=== PATIENT | male | born 1955 | race African-American/Black ===

== ENCOUNTER 2023-03-22 10:17 | Observation (INO) | payer BC, OTHER ==
[2023-03-22] MEDS ORDERED: ASPIRIN 81 MG CHEWABLE TABLET ONE ×2 (10:35→10:36)
[2023-03-22] MEDS ORDERED: NA CHLORIDE 0.9% 1,000 ML ONE (10:35)
[2023-03-22 10:51] LABS: Absolute Lymphocytes (CBC) 0.6 K/uL (0.7-4.9); Hematocrit 37.6 % (39.6-49.0); Lymphocytes % 35.1 % (15.3-44.8); MCV 77.6 fL (80-100); MPV 8.2 fL (7.6-11.3); Platelets 135 thou/uL (152-406); RBC Red Blood Cell Count 4.85 M/uL (4.33-5.43)
[2023-03-22 10:57] LABS: Protime INR 1.15
[2023-03-22 10:58] LABS: Specific Gravity 1.024 (1.005-1.030); Urine Bacteria None Seen /HPF (<20); Urine Bilirubin NEGATIVE (Negative); Urine Blood Negative (Negative); Urine Clarity Clear (Clear); Urine Color Light-Yellow (Yellow); Urine Glucose NEGATIVE (Negative); Urine Mucus Slight /HPF (None Seen); Urine Protein 2+ (Negative); Urine RBC <5 /HPF (None Seen); Urine Urobilinogen 1+ (Normal)
[2023-03-22 11:11] LABS: Albumin 2.6 g/dL (3.4-5.0); Bilirubin Direct 0.2 mg/dL (0-0.2); Bilirubin Indirect, Calculated 0.4 mg/dL (0.2-0.8); Bilirubin Total 0.6 mg/dL (0.2-1.0); Magnesium 1.8 mg/dL (1.6-2.4); Potassium 3.6 mEq/L (3.5-5.1); Protein, Total 6.2 g/dL (6.4-8.2)
[2023-03-22 11:12] LABS: Troponin High Sensitivity 292.4 pg/mL (<58.9)
[2023-03-22] MEDS ORDERED: ENOXAPARIN 100 MG/ML SYR SQ ONE (11:31)
[2023-03-22] MEDS ORDERED: ONDANSETRON 4 MG/2 ML VIAL ONE (11:32)
[2023-03-22] MEDS ORDERED: FUROSEMIDE 40 MG/4 ML VIAL ONE (11:32)
[2023-03-22] MEDS ORDERED: MORPHINE 2 MG/ML SYR ONE (11:32)
[2023-03-22] MEDS ORDERED: FAMOTIDINE 20 MG/2 ML VIAL IV ONE (11:32)
[2023-03-22 11:34] LABS: Platelet Estimate ADEQ
[2023-03-22 11:36] LABS: Blood Morphology Comment NOT SEEN (NOT SEEN)
--- NOTE | 2023-03-22 11:36 | RAD REPORT ---
EXAM DESCRIPTION: Keshav Single View03/22/2023 10:53 am CLINICAL HISTORY: CHEST PAIN COMPARISON: No comparisons TECHNIQUE: Portable AP view of the chest. FINDINGS: Patchy right mid to lower lung airspace opacities. More subtle opacities in the left media l lung base. No pneumothorax or effusion. Moderate cardiomegaly. Apicalized appearance of the centra l vessels. Mediastinal contours are otherwise unremarkable. IMPRESSION: Patchy right mid to lower lung airspace opacities and more subtle opacities in the left lung base. Findings may relate to mild infectious or inflammatory pneumonitis versus chronic scarring . Moderate cardiomegaly with findings suggestive of central congestion.
--- NOTE | 2023-03-22 11:40 | EDPHYS ---
Physician Documentation [facility] Name: Norbert Louis Age: 67 yrs Sex: Male : 1955 Arrival Date: 03/22/2023 Time: 10:17 Bed 8 Private MD: ED Physician Isiah Regan HPI: 03/22 11:28 This 67 yrs old Black Male presents to ER via EMS with complaints of Chest Pain. margarita 11:28 The patient or guardian reports chest pain that is located primarily in the substernal margarita area, anterior chest wall, bilaterally. Onset: this morning. The pain does not radiate. Associated signs and symptoms: Pertinent positives: lightheadedness, shortness of breath. The chest pain is described as a pressure. Severity of pain: At its worst the pain was moderate in the emergency department the pain has resolved and did so just prior to arrival. Historical: - Allergies: 10:22 No Known Allergies; ph - PMHx: 10:22 Hypertensive disorder; Diabetes mellitus; ph - Immunization history:: Adult Immunizations unknown. - Social history:: Smoking status: Patient denies any tobacco usage or history of. - Family history:: not pertinent. ROS: 11:28 Constitutional: Negative for fever, chills, and weight loss, Eyes: Negative for injury, margarita pain, redness, and discharge, ENT: Negative for injury, pain, and discharge, Neck: Negative for injury, pain, and swelling, Respiratory: Negative for shortness of breath, cough, wheezing, and pleuritic chest pain, Abdomen/GI: Negative for abdominal pain, nausea, vomiting, diarrhea, and constipation, Back: Negative for injury and pain, : Negative for injury, bleeding, discharge, and swelling, MS/Extremity: Negative for injury and deformity, Skin: Negative for injury, rash, and discoloration, Neuro: Negative for headache, weakness, numbness, tingling, and seizure, Psych: Negative for depression, anxiety, suicide ideation, homicidal ideation, and hallucinations, Allergy/Immunology: Negative for hives, rash, and allergies, Endocrine: Negative for neck swelling, polydipsia, polyuria, polyphagia, and marked weight changes, Hematologic/Lymphatic: Negative for swollen nodes, abnormal bleeding, and unusual bruising, 11:28 Cardiovascular: Positive for chest pain, of the chest, Exam: 11:28 Constitutional: This is a well developed, well nourished patient who is awake, alert, margarita and in no acute distress. Head/Face: Normocephalic, atraumatic. Eyes: Pupils equal round and reactive to light, extra-ocular motions intact. Lids and lashes normal. Conjunctiva and sclera are non-icteric and not injected. Cornea within normal limits. Periorbital areas with no swelling, redness, or edema. ENT: Nares patent. No nasal discharge, no septal abnormalities noted. Tympanic membranes are normal and external auditory canals are clear. Oropharynx with no redness, swelling, or masses, exudates, or evidence of obstruction, uvula midline. Mucous membranes moist. Neck: Trachea midline, no thyromegaly or masses palpated, and no cervical lymphadenopathy. Supple, full range of motion without nuchal rigidity, or vertebral point tenderness. No Meningismus. Chest/axilla: Normal chest wall appearance and motion. Nontender with no deformity. No lesions are appreciated. Cardiovascular: Regular rate and rhythm with a normal S1 and S2. No gallops, murmurs, or rubs. Normal PMI, no JVD. No pulse deficits. Respiratory: Lungs have equal breath sounds bilaterally, clear to auscultation and percussion. No rales, rhonchi or wheezes noted. No increased work of breathing, no retractions or nasal flaring. Abdomen/GI: Soft, non-tender, with normal bowel sounds. No distension or tympany. No guarding or rebound. No evidence of tenderness throughout. Back: No spinal tenderness. No costovertebral tenderness. Full range of motion. Male : Normal genitalia with no discharge or lesions. Skin: Warm, dry with normal turgor. Normal color with no rashes, no lesions, and no evidence of cellulitis. MS/ Extremity: Pulses equal, no cyanosis. Neurovascular intact. Full, normal range of motion. Neuro: Awake and alert, GCS 15, oriented to person, place, time, and situation. Cranial nerves II-XII grossly intact. Motor strength 5/5 in all extremities. Sensory grossly intact. Cerebellar exam normal. Normal gait. Psych: Awake, alert, with orientation to person, place and time. Behavior, mood, and affect are within normal limits. 11:28 ECG was reviewed by the Attending Physician. Vital Signs: 10:20 BP 150 / 80; Pulse 58; Resp 18; Temp 97.8; Pulse Ox 97% on R/A; Weight 118.39 kg; ph Height 6 ft. 2 in. ; 10:34 BP 155 / 72; Pulse 63; Resp 18; Pulse Ox 99% on R/A; rs5 11:36 BP 150 / 71; Pulse 61; Resp 18; Pulse Ox 99% on R/A; ph 14:16 BP 162 / 73; Pulse 52; Resp 18; Temp 98.1; Pulse Ox 99% on R/A; ph 14:45 BP 160 / 71; Pulse 67; Resp 18; Pulse Ox 99% on R/A; rs5 10:20 Body Mass Index 33.51 (118.39 kg, 187.96 cm) ph MDM: 10:22 Patient medically screened. margarita 11:35 Differential diagnosis: abnormal EKG, acute myocardial infarction, acute pericarditis, margarita anxiety, gastritis, hiatal hernia, pancreatitis, peptic ulcer disease, pleurisy, pneumonia, pulmonary embolus, stable angina, unstable angina. HEART Score: History: Moderately Suspicious (1), ECG: Non specific repolarization disturbance / LBTB / PM (1), Age: > or = 65 years (2), Risk Factors: > or = 3 Risk factors for atherosclerotic disease (2), [Hypercholesterolemia] [Hypertension] [DM] [+ Family HX] [Obesity] Troponin: > or = 3 x Normal Limit (2). The patient was given aspirin in the Emergency Department. ARTURO Risk Score: 1 - patient's age is greater or equal to 65 years, 1 - Three or more CAD risk factors, 1- Known CAD, 1 - ASA use in past 7 days, 1 - Elevated Cardiac Markers, TOTAL SCORE = 5. Data reviewed: vital signs, nurses notes, lab test result(s), EKG, radiologic studies, plain films. Consideration of Admission/Observation Escalation of care including admission/observation considered. I considered the following discharge prescriptions or medication management in the emergency department Medications were administered in the Emergency Department. See MAR. Independent interpretation of the following test(s) in the Emergency Department EKG: See my EKG interpretation above. Test considered but Not performed: CT: no ct chest. Care significantly affected by the following chronic conditions: Diabetes, Hypertension, Obesity. Counseling: I had a detailed discussion with the patient and/or guardian regarding the historical points, exam findings, and any diagnostic results supporting the discharge/admit diagnosis, the presence of at least one elevated blood pressure reading (>120/80) during this emergency department visit, lab results, the need for further work-up and treatment in the hospital. 03/22 10:28 Order name: Basic Metabolic Panel; Complete Time: 11:26 [facility] 03/22 10:28 Order name: CBC with Diff [facility] 03/22 10:28 Order name: LFT's; Complete Time: 11:26 [facility] 03/22 10:28 Order name: Magnesium; Complete Time: 11:26 [facility] 03/22 10:28 Order name: NT PRO-BNP; Complete Time: 11:26 [facility] 03/22 10:28 Order name: PT-INR; Complete Time: 11:26 [facility] 03/22 10:28 Order name: Troponin HS; Complete Time: 11:26 [facility] 03/22 10:28 Order name: Lipase; Complete Time: 11:26 [facility] 03/22 10:28 Order name: Urinalysis w/ reflexes; Complete Time: 11:26 [facility] 03/22 11:35 Order name: Manual Differential [facility] 03/22 13:51 Order name: Blood Culture Adult (2) [facility] 03/22 14:23 Order name: Troponin High Sensitivity [facility] 03/22 14:23 Order name: Lipid Profile [facility] 03/22 10:28 Order name: XRAY Chest (1 view); Complete Time: 13:50 [facility] 03/22 10:28 Order name: EKG; Complete Time: 10:29 [facility] 03/22 10:28 Order name: Cardiac monitoring; Complete Time: 10:45 [facility] 03/22 10:28 Order name: EKG - Nurse/Tech; Complete Time: 10:32 [facility] 03/22 10:28 Order name: IV Saline Lock; Complete Time: 10:32 [facility] 03/22 10:28 Order name: Labs collected and sent; Complete Time: 10:45 [facility] 03/22 10:28 Order name: O2 Per Protocol; Complete Time: 10:45 [facility] 03/22 10:28 Order name: O2 Sat Monitoring; Complete Time: 10:45 [facility] EC:28 Rate is 58 beats/min. Rhythm is regular. QRS Elwin is Normal. MO interval is normal. QRS margarita interval is normal. QT interval is normal. No Q waves. T waves are Inverted in leads I, II, III, aVL, aVF, V4, V5, V6. No ST changes noted. Clinical impression: Abnormal EKG without significant change. Interpreted by me. Reviewed by me. Administered Medications: 11:28 Discontinued: ns 0.9% 1000 ml IV at 125 ml/hr continuous margarita 10:45 Drug: Aspirin PO Chewable Tablet 324 mg PO once; 81 mg tablets x 4 Route: PO; rs5 14:09 Follow up: Response: No adverse reaction rs5 10:45 Drug: NS 0.9% IV 1000 ml IV at 125 ml/hr continuous Route: IV; Rate: 125 ml/hr; Site: rs5 right antecubital; 14:16 Follow up: IV Status: Order to discontinue infusion ph 11:35 Drug: Furosemide IVP 40 mg IVP once; give over 2 minutes Route: IVP; Site: right rs5 antecubital; 12:00 Follow up: Response: No adverse reaction rs5 11:35 Drug: Enoxaparin Sub-Q 100 mg Sub-Q once Route: Sub-Q; Site: left lower abdomen; rs5 12:00 Follow up: Response: No adverse reaction rs5 11:35 Drug: Famotidine IVP 20 mg IVP once; dilute with 10 mL 0.9% NaCl; give over 2 minutes rs5 Route: IVP; Site: right antecubital; 12:00 Follow up: Response: No adverse reaction rs5 11:35 Drug: morphine IVP or IV 2 mg IVP once over 4 mins Route: IVP; Infused Over: 4 mins; rs5 Site: right antecubital; 12:01 Follow up: Response: No adverse reaction rs5 11:35 Drug: Ondansetron IVP 4 mg IVP once; over 2 minutes Route: IVP; Site: right antecubital;rs5 12:01 Follow up: Response: No adverse reaction rs5 14:15 Drug: LevOfloxacin PO 750 mg PO once Route: PO; ph 14:46 Follow up: Response: No adverse reaction rs5 Disposition Summary: 03/22/23 11:40 Hospitalization Ordered Notes: Hospitalization Status: Inpatient Admission margarita Provider: Kyle Caraballo cha Location: Telemetry/MedSurg (Inpatient) margarita Condition: Fair margarita Problem: new margarita Symptoms: have improved margarita Bed/Room Type: Standard margarita Room Assignment: 221(03/22/23 14:00) ja1 Diagnosis - Chest pain, unspecified margarita - Unstable angina margarita - Obesity, unspecified margarita - Type 2 diabetes mellitus with hyperglycemia margarita - Essential (primary) hypertension margarita - Non ST elevation NC margarita Forms: - Medication Reconciliation Form margarita - SBAR form margarita - Leadership Thank You Letter [facility] Signatures: Dispatcher [employer] EDMS Isiah Regan MD MD cha Hall, Patricia RN RN Connor Polanco RN RN ja1 Richie Lin RN RN rs5 Corrections: (The following items were deleted from the chart) 11:35 10:58 CBC Smear Scan ordered. EDMS EDMS 14:00 11:40 margarita ja1
--- NOTE | 2023-03-22 11:40 | ER ---
Nurse's Notes [facility] Name: Norbert Louis Age: 67 yrs Sex: Male : 1955 Arrival Date: 03/22/2023 Time: 10:17 Bed 8 Private MD: Diagnosis: Chest pain, unspecified;Unstable angina;Obesity, unspecified;Type 2 diabetes mellitus with hyperglycemia;Essential (primary) hypertension;Non ST elevation CT Presentation: 03/22 10:20 Chief complaint: EMS states: [facility] c/o intermittent chest asencio for 3-4 days, ph hx of cardiac issues, , VSS, given 324 ASA, nitro x 1, 20G to RAC. Coronavirus screen: Vaccine status: Patient reports receiving the 2nd dose of the covid vaccine. Ebola Screen: No symptoms or risks identified at this time. Initial Sepsis Screen: Does the patient meet any 2 criteria? No. Patient's initial sepsis screen is negative. Does the patient have a suspected source of infection? No. Patient's initial sepsis screen is negative. Risk Assessment: Do you want to hurt yourself or someone else? Patient reports no desire to harm self or others. Onset of symptoms was March 22, 2023. 10:20 Method Of Arrival: EMS: [facility] 10:20 Acuity: AVIS 2 ph Triage Assessment: 10:22 General: Appears in no apparent distress. Behavior is calm, cooperative. Pain: ph Complains of pain in xiphoid area and mid-sternal area. Neuro: Level of Consciousness is awake, alert, obeys commands, Oriented to person, place, time, situation, Reports dizziness. Cardiovascular: Reports chest pain, lightheadedness, Denies nausea, syncope, vomiting, Capillary refill < 3 seconds in bilateral fingers Patient's skin is warm and dry. Chest pain is located in epigastric area substernal area. Respiratory: Airway is patent Respiratory effort is even, unlabored, Respiratory pattern is regular, symmetrical. GI: Reports epigastric pain, Patient currently denies abdominal pain, nausea, vomiting. Derm: Skin is pink, warm \T\ dry. Musculoskeletal: Circulation, motion, and sensation intact. Range of motion: intact in all extremities. Historical: - Allergies: 10:22 No Known Allergies; ph - PMHx: 10:22 Hypertensive disorder; Diabetes mellitus; ph - Immunization history:: Adult Immunizations unknown. - Social history:: Smoking status: Patient denies any tobacco usage or history of. - Family history:: not pertinent. Screenin:[facility] ED Fall Risk Assessment (Adult) History of falling in the last 3 months, ph including since admission No falls in past 3 months (0 pts) Score/Fall Risk Level 0 - 2 = Low Risk Oriented to surroundings, Maintained a safe environment, Provided non-skid footwear, Hourly rounding (assess needs \T\ fall precautionary measures) done. Abuse screen: Denies threats or abuse. Denies injuries from another. Nutritional screening: No deficits noted. Tuberculosis screening: No symptoms or risk factors identified. Assessment: 10:20 General: Appears in no apparent distress. comfortable, Behavior is calm, cooperative. rs5 Pain: Complains of pain in chest Pain does not radiate. Pain currently is 3 out of 10 on a pain scale. Quality of pain is described as aching, Pain began 2-3 days ago. Neuro: Level of Consciousness is awake, alert, obeys commands, Oriented to person, place, time, situation. Cardiovascular: Heart tones S1 S2 present Rhythm is. Respiratory: Airway is patent Respiratory effort is even, unlabored, Respiratory pattern is regular, symmetrical, Breath sounds are clear bilaterally. GI: Abdomen is round non-distended, Bowel sounds present X 4 quads. Abd is soft and non tender X 4 quads. : No signs and/or symptoms were reported regarding the genitourinary system. EENT: No signs and/or symptoms were reported regarding the EENT system. Derm: Skin is intact, Skin is dry, Skin is normal, Skin temperature is warm. Musculoskeletal: Range of motion: intact in all extremities. 10:25 Reassessment: SEE TRIAGE ASSESSMENT. ph 11:24 Reassessment: Patient and/or family updated on plan of care and expected duration. Pain rs5 level reassessed. Patient is alert, oriented x 3, equal unlabored respirations, skin warm/dry/pink. Patient denies pain at this time. Patient states feeling better. 11:35 Reassessment: Patient appears in no apparent distress at this time. Patient and/or ph family updated on plan of care and expected duration. Pain level reassessed. Patient is alert, oriented x 3, equal unlabored respirations, skin warm/dry/pink. 12:40 Reassessment: Patient and/or family updated on plan of care and expected duration. Pain rs5 level reassessed. Patient is alert, oriented x 3, equal unlabored respirations, skin warm/dry/pink. Cardiovascular: Rhythm is regular. Respiratory: Respiratory effort is even, unlabored, Respiratory pattern is regular, symmetrical. 13:20 Reassessment: blanket provided per pt request, to bedside for blood draw. rs5 14:16 Reassessment: Patient appears in no apparent distress at this time. Patient and/or ph family updated on plan of care and expected duration. Pain level reassessed. Patient is alert, oriented x 3, equal unlabored respirations, skin warm/dry/pink. Vital Signs: 10:20 BP 150 / 80; Pulse 58; Resp 18; Temp 97.8; Pulse Ox 97% on R/A; Weight 118.39 kg; ph Height 6 ft. 2 in. ; 10:34 BP 155 / 72; Pulse 63; Resp 18; Pulse Ox 99% on R/A; rs5 11:36 BP 150 / 71; Pulse 61; Resp 18; Pulse Ox 99% on R/A; ph 14:16 BP 162 / 73; Pulse 52; Resp 18; Temp 98.1; Pulse Ox 99% on R/A; ph 14:45 BP 160 / 71; Pulse 67; Resp 18; Pulse Ox 99% on R/A; rs5 10:20 Body Mass Index 33.51 (118.39 kg, 187.96 cm) ph ED Course: 10:19 Patient arrived in ED. ph 10:22 Triage completed. ph 10:22 Isiah Regan MD is Attending Physician. margarita 10:25 Arm band placed on Patient placed in an exam room, on a stretcher, on bus monitor, ph on pulse oximetry. EKG completed in triage. Results shown to MD. 10:25 Maintain EMS IV. Dressing intact. Good blood return noted. Site clean \T\ dry. Gauge \T\ ph site: 20 RAC. Patient maintains SpO2 saturation greater than 95% on room air. 10:32 Richie Lin RN is Primary Nurse. rs5 10:54 XRAY Chest (1 view) In Process Unspecified. EDMS 11:36 Patient has correct armband on for positive identification. Placed in gown. Bed in low ph position. Call light in reach. Side rails up X 1. Client placed on continuous cardiac and pulse oximetry monitoring. NIBP monitoring applied. Door closed. Noise minimized. 11:39 Kyle Caraballo is Hospitalizing Provider. margarita 14:07 No provider procedures requiring assistance completed. rs5 14:16 Patient admitted, IV remains in place. ph Administered Medications: 11:28 Discontinued: ns 0.9% 1000 ml IV at 125 ml/hr continuous margarita 10:45 Drug: NS 0.9% IV 1000 ml IV at 125 ml/hr continuous Route: IV; Rate: 125 ml/hr; Site: rs5 right antecubital; 14:16 Follow up: IV Status: Order to discontinue infusion ph 10:45 Drug: Aspirin PO Chewable Tablet 324 mg PO once; 81 mg tablets x 4 Route: PO; rs5 14:09 Follow up: Response: No adverse reaction rs5 11:35 Drug: Furosemide IVP 40 mg IVP once; give over 2 minutes Route: IVP; Site: right rs5 antecubital; 12:00 Follow up: Response: No adverse reaction rs5 11:35 Drug: Enoxaparin Sub-Q 100 mg Sub-Q once Route: Sub-Q; Site: left lower abdomen; rs5 12:00 Follow up: Response: No adverse reaction rs5 11:35 Drug: Famotidine IVP 20 mg IVP once; dilute with 10 mL 0.9% NaCl; give over 2 minutes rs5 Route: IVP; Site: right antecubital; 12:00 Follow up: Response: No adverse reaction rs5 11:35 Drug: morphine IVP or IV 2 mg IVP once over 4 mins Route: IVP; Infused Over: 4 mins; rs5 Site: right antecubital; 12:01 Follow up: Response: No adverse reaction rs5 11:35 Drug: Ondansetron IVP 4 mg IVP once; over 2 minutes Route: IVP; Site: right antecubital;rs5 12:01 Follow up: Response: No adverse reaction rs5 14:15 Drug: LevOfloxacin PO 750 mg PO once Route: PO; ph 14:46 Follow up: Response: No adverse reaction rs5 Medication: 11:36 VIS not applicable for this client. ph Outcome: 11:40 Decision to Hospitalize by Provider. margarita 14:42 Admitted to ER Hold. Please see [facility] for further documentation. rs5 14:42 Condition: stable 14:42 Discharge instructions given to patient, Instructed on the need for admit, Demonstrated understanding of instructions, 15:31 Patient left the ED. rs5 Signatures: Dispatcher [employer] Isiah Yun MD MD cha Hall, Patricia, RN RN Richie Lin RN RN rs5
[2023-03-22] MEDS ORDERED: NITROGLYCERIN 0.4 MG/TAB SL PRN (12:33)
[2023-03-22] MEDS ORDERED: METOPROLOL TARTRATE 5 MG/5 ML INJ IV PRN (12:33)
[2023-03-22] MEDS ORDERED: levoFLOXacin 750 MG TAB ONE (14:09)
[2023-03-22 15:39] LABS: Potassium 3.6 mEq/L (3.5-5.1)
[2023-03-22 16:00] VITALS: BMI 33.5
[2023-03-22] MEDS ORDERED: GLUCAGON 1 MG/VIAL IM PRN (16:27)
[2023-03-22] MEDS ORDERED: D50W 25 GM/50 ML SYRINGE IV PRN (16:27)
[2023-03-22] MEDS: INSULIN REGULAR (HUMAN) 100 UNIT/ML SQ SCH (16:30)
[2023-03-22] MEDS ORDERED: D10W 125 ML IV PRN (16:34)
--- NOTE | 2023-03-22 17:32 | P.HP ---
Certification for Inpatient Patient admitted to: Observation With expected LOS: <2 Midnights Patient will require the following post-hospital care: None Practitioner: I am a practitioner with admitting privileges, knowledge of patient current condition, hospital course, and medical plan of care. Services: Services provided to patient in accordance with Admission requirements found in Title 42 Section 412.3 of the Code of Federal Regulations Patient History Date of Service: 03/22/23 Reason for admission: CHF exacerbation History of Present Illness: Norbert Louis is a 67-year-old male with past medical history of hypertensive disorder, CHF, and diabetes mellitus type 2 NIDDM who presented to the ED with complaints of chest pain. [facility] and dizziness that has occurred in the last couple days. He was not feeling better so he was brought to the ED today. Chest x-ray reports "patchy right and mild to lower lung air space opacity and more subtle opacity of the left lung base. Findings may relate to mild infection or inflammatory pneumonitis versus chronic scarring. Moderate cardiomegaly only with findings suggestive of central congestion." Troponin 292.4 with redraw of 333. Laboratory evaluation showing WBC 1.7, H&H 12/37, MCV 77.6, MCH 25.8, platelets 135, lipid panel unremarkable, BNP 463, albumin 2.6, GFR 69. Initial vitals BP 150 / 80; Pulse 58; Resp 18; Temp 97.8; Pulse Ox 97% on R/A. EKG Rate is 58 beats/min. Rhythm is regular. QRS [place] is Normal. [place] interval is normal. QRS interval is normal. QT interval is normal. No Q waves. T waves are Inverted in leads I, II, III, aVL, aVF, V4, V5, V6. No ST changes noted. Clinical impression: Abnormal EKG without significant change. Norbert will be admitted to hospitalist service for further evaluation and treatment CHF exacerbation. Allergies No Known Allergies Allergy (Unverified 03/22/23 12:53) Home Medications: Amlodipine [Norvasc] 10 mg PO DAILY 03/22/23 Atorvastatin Calcium [Lipitor] 80 mg PO BEDTIME 03/22/23 Finasteride [Proscar] 5 mg PO DAILY 03/22/23 Furosemide [Lasix] 20 mg PO DAILY 03/22/23 Insulin Glargine,Hum.rec.anlog [Lantus] 50 unit SQ DAILY 03/22/23 Potassium Chloride 10 meq PO DAILY 03/22/23 Tamsulosin [Flomax] 0.4 mg PO DAILY 03/22/23 - Past Medical/Surgical History Has patient received pneumonia vaccine in the past: Yes Diabetic: Yes -: CHF -: HTN -: HLD -: DM2 NIDDM -: [place] Past Surgical History: Reviewed- Non-Contributory - Family History Family History: Reviewed- Non-Contributory - Social History Smoking Status: Never smoker Alcohol use: No CD- Drugs: No Caffeine use: Yes Place of Residence: Home Review of Systems General: Weakness Cardiovascular: Chest Pain Neurological: Weakness, Other (Dizziness) Physical Examination - Physical Exam General: Alert, In no apparent distress, Oriented x3 HEENT: Atraumatic, Normocephalic, PERRLA Neck: Supple, 2+ carotid pulse no bruit, JVD not distended Respiratory: Clear to auscultation bilaterally, Normal air movement Cardiovascular: Normal pulses, Regular rate/rhythm, Normal S1 S2 Capillary refill: <2 Seconds Gastrointestinal: Normal bowel sounds, Soft and benign, Distended (obese) Musculoskeletal: No contractures, No erythema Integumentary: No breakdown, No significant lesion, No tenderness/swelling Neurological: Normal speech, Normal strength at 5/5 x4 extr, Normal tone - Studies Laboratory Data (last 24 hrs) 03/22/23 03/22/23 03/22/23 10:40 10:40 10:40 WBC 1.70 L Hgb 12.5 L Hct 37.6 L Plt Count 135 L PT 12.6 H INR 1.15 Sodium 142 Potassium 3.6 BUN 17 Creatinine 1.15 Glucose 102 Magnesium 1.8 Total Bilirubin 0.6 AST 13 L ALT 20 Alkaline Phosphatase 66 Lipase 20 Assessment and Plan - Plan Assessment and plan Acute CHF exacerbation Elevated troponin in patient with hx [place] BNP 463, Tropnin 292.4/ 333, serial pending Lipid panel unremarkable EKG abdnormal, no ST changes Dr Mann consulted Lasix IV BID Strict I and O Daily weight monitor potassium Procalcitonin pending Thrombocytopenia Leukopenia Platelet 135, WBC 1.7 Monitor in a.m. labs SCD for now History hypertension History hyperlipidemia Restart home medications when available DVT PPx SCD Full code LOS 2 to 3 days Discharge Plan: Home Plan to discharge in: 48 Hours - Advance Directives Does patient have a Living Will: No Does patient have a Durable POA for Healthcare: No Time Spent Managing Pts Care (In Minutes): 50
[2023-03-22 18:09] LABS: Absolute Lymphocytes (CBC) 0.8 K/uL (0.7-4.9); Lymphocytes % 42.6 % (15.3-44.8); MPV 9.2 fL (7.6-11.3); Platelets 124 thou/uL (152-406)
[2023-03-22 18:14] LABS: Hematocrit 40.7 % (39.6-49.0); MCV 77.5 fL (80-100); RBC Red Blood Cell Count 5.25 M/uL (4.33-5.43)
[2023-03-22] MEDS: AMLODIPINE 10 MG TAB PO SCH (19:56)
[2023-03-22] MEDS: ATORVASTATIN 80 MG TAB PO SCH (19:56)
[2023-03-22] MEDS: Levofloxacin 750mg IV 750 MG/150 ML BAG IV SCH (19:57)
[2023-03-22] MEDS: METOPROLOL TARTRATE 5 MG/5 ML INJ IV PRN (20:18)
--- NOTE | 2023-03-22 22:33 | CON ---
Date of Consultation: 03/22/2023 Reason For Consultation: Non-STEMI. History Of Present Illness: This 67-year-old male with history of hypertension, diabetes, presented with chest pain, retrosternal, in the lower chest area. No radiation. He felt like there was a bubb le that was about to burst and denies having any shortness of breath or diaphoresis. No nausea, vomi ting, or diarrhea. No known history of coronary artery disease and never had any cardiac interventio n. At the present time, he is asymptomatic, feels comfortable. His troponin was borderline elevated , hence I was consulted. Past Medical History: Diabetes and hypertension. Medication: Refer to consult sheet for detailed list. Allergies: NO KNOWN DRUG ALLERGIES. Family History: No premature coronary artery disease or cancer. Social History: Does not smoke or drink. Does not use any drugs. Physical Examination: Vital Signs: Reviewed. Head and Neck: Pupils are equal, reactive to light. Intact eye movements. No JVD. No cervical lym phadenopathy. Neck is supple. Thyroid is not enlarged. Lungs: Clear to auscultation bilaterally. No rhonchi, wheezing, or crackles. No accessory muscle u se. Heart: Regular rate and rhythm. No extra sounds. Abdomen: Soft and nontender. Bowel sounds positive. No organomegaly. No masses or hernia. No rig idity or rebound. Extremities: No edema, clubbing, or cyanosis. Intact pulses. Skin: No rashes noted on exam. Neurological: Alert, awake, oriented x3. No acute focal deficits appreciated. Lymph Nodes: No cervical or axillary lymphadenopathy. Investigations: Troponin 292 and then 333, BUN 16, creatinine 1.1. Hemoglobin is 12.5. Assessment/recommendation: 1.Xug-VN-iahhaavty myocardial infarction. Continue aspirin. Keep n.p.o. past midnight for coronary angiogram tomorrow and trend troponin. If substantial increase happened, then IV heparin drip will be recommended. Also recommend start on Lipitor 40 mg at bedtime. 2.Hypertension. Blood pressure is borderline elevated. Resume home medications and adjust as neede dCarly SR/MODL Voice ID: [id number] Report ID: [id number]
[2023-03-23] MEDS: ACETAMINOPHEN 325 MG TABLET PO PRN (04:29)
[2023-03-23 07:35] LABS: Magnesium 1.7 mg/dL (1.6-2.4); Phosphorus 3.1 mg/dL (2.5-4.9); Potassium 3.3 mEq/L (3.5-5.1)
--- NOTE | 2023-03-23 08:22 | P.PN ---
Date of Service: 03/23/23 Subjective Plan for heart cath today No new complaints ROS 10 point ROS as noted above, otherwise negative Physical Exam General: AAOx3, NAD HEENT: Atraumatic, Normocephalic, PERRLA Neck: Supple, 2+ carotid pulse no bruit, JVD not distended Respiratory: Clear to auscultation bilaterally, Normal air movement Cardiovascular: Normal pulses, RRR, Normal S1 S2, no murmur appreciated Capillary refill: <2 Seconds Gastrointestinal: positive bowel sounds, Soft and benign on palpation, NT/Distended (obese) Musculoskeletal: No contractures, No erythema Integumentary: No breakdown, No significant lesion, No tenderness/swelling Neurological: Normal speech, Normal strength at 5/5 x4 extr, Normal tone Vitals Reviewed Problem list Acute CHF exacerbation Elevated troponin in patient with hx [place] Thrombocytopenia Leukopenia History hypertension History hyperlipidemia Assessment and Plan Acute CHF exacerbation Elevated troponin in patient with hx [place] BNP 463, Tropnin 292.4/ 333/ 333 Lipid panel unremarkable EKG abdnormal, no ST changes Dr Mann consulted- [facility] today Lasix IV BID Strict I and O Daily weight monitor potassium Procalcitonin 0.05 Thrombocytopenia Leukopenia Platelet 124, WBC 3 Monitor in a.m. labs SCD for now History hypertension History hyperlipidemia Restart home medications when available DVT PPx SCD Full code LOS 2 to 3 days Discharge Plan: Home Plan to discharge in: 48 Hours
[2023-03-23] MEDS: TAMSULOSIN 0.4 MG SR CAP PO SCH (08:47)
[2023-03-23] MEDS: POTASSIUM CL SA 10 MEQ TAB PO SCH (08:48)
[2023-03-23] MEDS: ASPIRIN EC 81 MG TAB PO SCH (08:48)
[2023-03-23] MEDS: FINASTERIDE 5 MG TAB PO SCH (09:00)
[2023-03-23] MEDS ORDERED: LIDOCAINE 1% 20 ML MDV ONE (10:00)
[2023-03-23] MEDS ORDERED: HEPA 1000U/500MLS 2,000 UNIT/1,000 ML BAG IV ONE (10:00)
[2023-03-23] MEDS ORDERED: NITROGLYCERIN/D5W 25 MG/250 ML BTL IV ONE (11:04)
[2023-03-23] MEDS ORDERED: FENTANYL CITR 100 MCG/2 ML ONE (11:04)
[2023-03-23] MEDS ORDERED: VERAPAMIL HCL 10 MG/4 ML VIAL IV ONE (11:04)
[2023-03-23] MEDS ORDERED: TICAGRELOR 90 MG TABLET PO ONE (11:05)
[2023-03-23] MEDS ORDERED: HEPARIN 10,000 UNIT/10 ML VIAL IV ONE (11:05)
[2023-03-23] MEDS ORDERED: HEPARIN 5000 UNIT/ML 1 ML VIAL ONE (11:05)
[2023-03-23] MEDS ORDERED: MIDAZOLAM HCL 2 MG/2 ML INJ ONE (11:05)
[2023-03-23] MEDS ORDERED: ATROPINE SULF 1 MG/10 ML SYR IV ONE (11:05)
[2023-03-23] MEDS ORDERED: ASPIRIN 325 MG TAB ONE (11:06)
[2023-03-23] MEDS ORDERED: CLOPIDOGREL 75 MG TABLET ONE (11:06)
[2023-03-23] MEDS ORDERED: NA CHLORIDE 0.9% 500 ML ONE (11:18)
--- NOTE | 2023-03-23 16:44 | EKG ---
Test Date: 2023-03-22 Test Time: 10:17:41 Vp Of Product: DAIMOND MEASUREMENT RESULTS: Intervals: Rate: 58 MT: 204 QRSD: 108 QT: 422 QTc: 414 Garwood: P: 54 MT: 204 QRS: 57 T: 182 INTERPRETIVE STATEMENTS: Sinus bradycardia Incomplete left bundle branch block ST & T wave abnormality, consider inferolateral ischemia Abnormal ECG Compared to ECG 01/16/2004 04:22:00 Left bundle-branch block now present ST (T wave) deviation now present Sinus arrhythmia no longer present First degree AV block no longer present Intraventricular conduction delay no longer present T-wave abnormality no longer present Possible ischemia still present Electronically Signed On 03-23-23 16:44:[address] SUPERVISOR by Howard Ahumada
[2023-03-24 08:15] LABS: Magnesium 1.8 mg/dL (1.6-2.4); Phosphorus 2.6 mg/dL (2.5-4.9); Potassium 3.3 mEq/L (3.5-5.1)
[2023-03-24 09:38] VITALS: BP 160/71; TEMP 98.1; O2SAT 99
--- NOTE | 2023-03-24 13:52 | ECHO ---
HEIGHT: 6 ft 2 in WEIGHT: 261 lb 0 oz DATE OF STUDY: 03/24/[address]: rBittney Harrington NP 2-DIMENSIONAL: YES M.MODE: YES DOPPLER: YES COLOR FLOW: YES TDS: PORTABLE: YES DEFINITY: BUBBLE STUDY: DIAGNOSIS: CHEST PAIN CARDIAC HISTORY: CATHERIZATION: NO SURGERY: NO PROSTHETIC VALVE: NO PACEMAKER: NO MEASUREMENTS (cm) DIASTOLIC (NORMALS) SYSTOLIC (NORMALS) IVSd 1.6 (0.6-1.2) LA Diam 4.1 (1.9-4.0) LVEF 70% LVIDd 5.1 (3.5-5.7) LVIDs 3.0 (2.0-3.5) %FS 40% LVPWd 1.6 (0.6-1.2) Ao Diam 3.0 (2.0-3.7) 2 DIMENSIONAL ASSESSMENT: RIGHT ATRIUM: NORMAL LEFT ATRIUM: DILATED RIGHT VENTRICLE: NORMAL LEFT VENTRICLE: SEVERE LEFT VENTRICULAR HYPERTROPHY TRICUSPID VALVE: NORMAL MITRAL VALVE: MILD MITRAL REGURGITATION PULMONIC VALVE: NORMAL AORTIC VALVE: NORMAL PERICARDIAL EFFUSION: NONE AORTIC ROOT: NORMAL LEFT VENTRICULAR WALL MOTION: NORMAL DOPPLER/COLOR FLOW: SEE BELOW COMMENTS: 1. NORMAL LEFT VENTRICULAR EJECTION FRACTION GREATER THAN 60% 2. NORMAL WALL MOTION 3. GRADE I DIASTOLIC DYSFUNCTION 4. SEVERE CONCENTRIC LEFT VENTRICULAR HYPERTROPHY 5. LEFT ATRIAL ENLARGEMENT TECHNOLOGIST: ANOOP DUMONT
--- NOTE | 2023-03-24 19:56 | P.DS ---
Admission Date: 03/22/23 Discharge Date: 03/25/23 Disposition: ROUTINE DISCHARGE Discharge Condition: GOOD Reason for Admission: CHF exacerbation Brief History of Present Illness: Diagnosis Acute CHF exacerbation Elevated troponin in patient with hx [place] Thrombocytopenia Leukopenia History hypertension History hyperlipidemia HPI 03/22/23 Norbert Louis is a 67-year-old male with past medical history of hypertensive disorder, CHF, and diabetes mellitus type 2 NIDDM who presented to the ED with complaints of chest pain. [facility] and dizziness that has occurred in the last couple days. He was not feeling better so he was brought to the ED today. Chest x-ray reports "patchy right and mild to lower lung air space opacity and more subtle opacity of the left lung base. Findings may relate to mild infection or inflammatory pneumonitis versus chronic scarring. Moderate cardiomegaly only with findings suggestive of central congestion." Troponin 292.4 with redraw of 333. Laboratory evaluation showing WBC 1.7, H&H 12/37, MCV 77.6, MCH 25.8, platelets 135, lipid panel unremarkable, BNP 463, albumin 2.6, GFR 69. Initial vitals BP 150 / 80; Pulse 58; Resp 18; Temp 97.8; Pulse Ox 97% on R/A. EKG Rate is 58 beats/min. Rhythm is regular. QRS [place] is Normal. [place] interval is normal. QRS interval is normal. QT interval is normal. No Q waves. T waves are Inverted in leads I, II, III, aVL, aVF, V4, V5, V6. No ST changes noted. Clinical impression: Abnormal EKG without significant change. Norbert will be admitted to hospitalist service for further evaluation and treatment CHF exacerbation. Hospital Course: Norbert Louis is a pleasant 67 year old male with a past medical history significant for hypertensive disorder, CHF, and diabetes mellitus type 2 NIDDM who was admitted to the [facility] on 03/22/23 for CHF exacerbation. Norbert Louis presented to the ED with Chief complaint of chest pain, dizziness, and blurred vision. Dr. Mann was consulted and performed a LHC showing good heart function. Dr. Mann has recommended discharge at this time. The chest xray has shown a likely infection to the left lung and has been treated with IV antibiotics that will be prescribed to continue at home. Follow up with your PCP in 2-3 weeks for continued medication management for blood pressure and diabetes control. He is hemodynamically stable, Ambulating independently, on RA, alert and oriented, and ready for discharge. On 03/24/23, Norbert was seen on morning rounds and deemed medically stable for discharge. Norbert was discharged with instructions to schedule follow-up appointments with PCP and Dr. Mann. Levaquin was prescribed. The patient and family members were given the opportunity to ask questions and reported no further questions. Furthermore, all questions were answered to the best of my ability. A copy of this discharge summary will be sent to the above providers to facilitate continuity of care. Today, I personally spent 50 minutes with Norbert, of which greater than 50% of the time was spent in patient education, counseling, and coordination of care as described above. Physical Exam General: Alert and oriented x3, NAD, conversant and calm HEENT: Atraumatic, Normocephalic, PERRLA Neck: Supple, 2+ carotid pulse no bruit, JVD not distended Respiratory: Clear to auscultation bilaterally, symmetrical chest wall movement, on RA Cardiovascular: Normal pulses, RRR, Normal S1 S2, no murmur appreciated Capillary refill: <2 Seconds Gastrointestinal: Normoactive bowel sounds, Soft and benign on palpation, NT/ND (obese) Musculoskeletal: No contractures, No erythema Integumentary: No breakdown, No significant lesion, No tenderness/swelling Neurological: Normal speech, Normal strength at 5/5 x4 extr, Normal tone Vital Signs/Physical Exam: Temp Pulse Resp BP Pulse Ox 98.1 F 67 18 160/71 H 96 03/24/23 09:25 03/24/23 09:26 03/24/23 09:26 03/24/23 09:26 03/24/23 08:00 Laboratory Data at Discharge: WBC 3.90 thou/uL (4.3-10.9) L 03/22/23 16:05 Hgb 13.7 g/dL (13.6-17.9) D 03/22/23 16:05 Hct 40.7 % (39.6-49.0) 03/22/23 16:05 Plt Count 124 thou/uL (152-406) L 03/22/23 16:05 PT 12.6 SECONDS (9.5-12.5) H 03/22/23 10:40 INR 1.15 03/22/23 10:40 Sodium 139 mEq/L (136-145) 03/24/23 07:38 Potassium 3.3 mEq/L (3.5-5.1) L 03/24/23 07:38 BUN 12 mg/dL (7-18) 03/24/23 07:38 Creatinine 0.97 mg/dL (0.70-1.30) 03/24/23 07:38 Glucose 174 mg/dL (74-106) H 03/24/23 07:38 Phosphorus 2.6 mg/dL (2.5-4.9) 03/24/23 07:38 Magnesium 1.8 mg/dL (1.6-2.4) 03/24/23 07:38 Total Bilirubin 0.6 mg/dL (0.2-1.0) 03/22/23 10:40 AST 13 U/L (15-37) L 03/22/23 10:40 ALT 20 U/L (16-61) 03/22/23 10:40 Alkaline Phosphatase 66 U/L (45-117) 03/22/23 10:40 Triglycerides 64 mg/dL (<150) 03/22/23 13:38 Cholesterol 127 mg/dL (<200) 03/22/23 13:38 HDL Cholesterol 30 mg/dL (40-60) L 03/22/23 13:38 Cholesterol/HDL Ratio 4.23 03/22/23 13:38 Lipase 20 U/L (13-75) 03/22/23 10:40 Home Medications: Amlodipine [Norvasc*] 10 mg PO DAILY 03/22/23 Atorvastatin Calcium [Lipitor] 80 mg PO BEDTIME 03/22/23 Finasteride [Proscar*] 5 mg PO DAILY 03/22/23 Furosemide [Lasix*] 20 mg PO DAILY 03/22/23 Insulin Glargine,Hum.rec.anlog [Lantus] 50 unit SQ DAILY 03/22/23 Potassium Chloride 10 meq PO DAILY 03/22/23 Tamsulosin [Flomax*] 0.4 mg PO DAILY 03/22/23 levoFLOXacin [Levaquin] 750 mg PO DAILY 7 Days #7 tab 03/24/23 New Medications: levoFLOXacin [Levaquin] 750 mg PO DAILY 7 Days #7 tab Physician Discharge Instructions: Norbert Louis presented to the ED with Chief complaint of chest pain, dizziness, and blurred vision. Dr. Mann was consulted and performed a LHC showing good heart function. He has released you for discharge. The chest xray has shown a likely infection to the left lung and has been treated with IV antibiotics that will be prescribed to continue at home. Follow up with your PCP in 2-3 for continued medication management for blood pressure and diabetes control. 1. Follow up with PCP 2-3 days for continued medication management, blood pressure management, diabetes management 2. Follow up with Dr. Mann in 2 weeks for continued heart health 3. Continue taking atorvastatin 80 mg daily and aspirin 81 mg daily 4. continue with a heart healthy and diabetic friendly diet 5. Ambulate as tolerated 6. Return to the ED if symptoms worsen 7. no new medications this admission Diet: ADA Activity: Ad sharee Followup: Gopi Mann MD [ACTIVE - CAN ADMIT] - 1-2 Weeks [facility] [Primary [facility] Provider] - 1-2 Weeks Time spent managing pt's care (in minutes): 50
== END 2023-03-24 13:45 | disposition home or self-care (01) ==
LOC: ER 10:17 → ERHOLD 12:32 → 2ND 14:17
PROVIDERS: ADMIT Internal Medicine; ATTEND Internal Medicine
DX: I21.4 Non-ST elevation (NSTEMI) myocardial infarction (principal); D69.6 Thrombocytopenia, unspecified; D72.819 Decreased white blood cell count, unspecified; I10 Essential (primary) hypertension; E78.5 Hyperlipidemia, unspecified; J98.4 Other disorders of lung; I51.7 Cardiomegaly
CPT/HCPCS: 93005; 93306; 87040 ×2; 85025 ×2; 81001; 80048 ×4; 36415 ×3; 83735 ×3; 84100 ×2; 85610; 80061; 82947 ×6; 80076; 83605; 84484 ×3; 83690; 84145; 83880; 71045; 93458; 76937; C1893; Q9966; J1644; J1650; J2001; J1940; J3010; J2270; J2405; G0378 ×5; J7040; J7030; 96361; 96372; 96374; 96375; 99152; 99153; 99285; J0461; J2250

== ENCOUNTER 2024-01-25 16:26 | Inpatient (IN) | payer OTHER, BC ==
[2024-01-25] MEDS ORDERED: ASPIRIN 81 MG CHEWABLE TABLET ONE (16:44)
[2024-01-25 17:16] LABS: Absolute Lymphocytes (CBC) 1.3 K/uL (0.7-4.9); Absolute Monocytes 0.2 K/uL (0.1-1.3); Absolute Neutrophil 1.9 K/uL (1.8-8.0); Basophils % 0.8 % (0-1.3); Eosinophils % 0.5 % (0-4.4); Hematocrit 45.9 % (39.6-49.0); Hemoglobin 14.8 g/dL (13.6-17.9); Lymphocytes % 36.9 % (15.3-44.8); MCH 25.6 pg (27.0-35.0); MCHC 32.3 g/dL (32.0-36.0); MCV 79.3 fL (80-100); MPV 9.7 fL (7.6-11.3); Neutrophils % 56.8 % (41.7-73.7); Nucleated Red Blood Cells % 0.4 % (0-0); Platelets 112 thou/uL (152-406); RBC Red Blood Cell Count 5.79 M/uL (4.33-5.43); Red Cell Distribution Width 16.7 % (12.1-15.2)
--- NOTE | 2024-01-25 17:18 | RAD REPORT ---
EXAMINATION: ONE VIEW CHEST XR CLINICAL INDICATION: CHEST PAIN TECHNIQUE: Frontal chest projection is submitted. Examination is limited by patient positioning and t echnique. COMPARISON: 03/22/2023 FINDINGS: The lungs are well inflated and clear. The heart is upper limit of normal in size. No displaced fract ures identified. IMPRESSION: No acute intrathoracic abnormalities.
[2024-01-25 17:35] LABS: Anion Gap 6.8 mEq/L (5.0-15.0); Magnesium 2.1 mg/dL (1.6-2.4); Potassium 3.8 mEq/L (3.5-5.1)
[2024-01-25 17:37] LABS: Troponin High Sensitivity 579.8 pg/mL (<58.9)
[2024-01-25] MEDS ORDERED: HEPARIN 5000 UNIT/ML 1 ML VIAL ONE (18:13)
[2024-01-25] MEDS ORDERED: HEPARIN/D5W 25,000 UNIT/500 ML BAG IV ONE (18:14)
--- NOTE | 2024-01-25 18:14 | ER ---
Nurse's Notes [facility] Name: Norbert Louis Age: 68 yrs Sex: Male : 1955 Arrival Date: 01/25/2024 Time: 16:26 Bed 8 Private MD: Diagnosis: NSTEMI Presentation: 01/24 16:27 Chief complaint: EMS states[facility] AND POSTURAL VERTIGO. bp Coronavirus screen: At this time, the client does not indicate any symptoms associated with coronavirus-19. Ebola Screen: No symptoms or risks identified at this time. Initial Sepsis Screen: Does the patient meet any 2 criteria? No. Patient's initial sepsis screen is negative. Does the patient have a suspected source of infection? No. Patient's initial sepsis screen is negative. Risk Assessment: Do you want to hurt yourself or someone else? Patient reports no desire to harm self or others. Onset of symptoms is unknown. Care prior to arrival: IV initiated. 20 GA, in the right forearm, Glucose check: 149. 16:27 Method Of Arrival: EMS: [facility] bp 16:27 Acuity: AVIS 3 bp Triage Assessment: 16:28 General: Appears in no apparent distress. Behavior is calm, cooperative, appropriate bp for age. Pain: Complains of pain in chest. EENT: No deficits noted. Neuro: Reports dizziness. Cardiovascular: Rhythm is sinus bradycardia. Respiratory: No deficits noted. GI: No signs and/or symptoms were reported involving the gastrointestinal system. : No signs and/or symptoms were reported regarding the genitourinary system. Derm: No deficits noted. Musculoskeletal: No deficits noted. Historical: - Allergies: 16:28 No Known Allergies; bp - PMHx: 16:28 diabetes mellitus; Hypertensive disorder; bp - Immunization history:: Adult Immunizations up to date. - Infectious Disease History:: Denies. - Social history:: Smoking status: Patient denies any tobacco usage or history of. Screenin:29 [facility] ED Fall Risk Assessment (Adult) History of falling in the last 3 months, bp including since admission No falls in past 3 months (0 pts) Confusion or Disorientation No (0 pts) Intoxicated or Sedated No (0 pts) Impaired Gait No (0 pts) Mobility Assist Device Used No (0 pt) Altered Elimination No (0 pt) Score/Fall Risk Level 0 - 2 = Low Risk Oriented to surroundings. Abuse screen: Denies threats or abuse. Denies injuries from another. Nutritional screening: No deficits noted. Tuberculosis screening: No symptoms or risk factors identified. Assessment: 16:29 General: Appears in no apparent distress. Behavior is calm, cooperative, appropriate bp for age. 18:20 Reassessment: Patient appears in no apparent distress at this time. Patient is alert, bp oriented x 3, equal unlabored respirations, skin warm/dry/pink. Vital Signs: 16:27 BP 125 / 67; Pulse 45; Resp 16; Temp 98; Pulse Ox 99% ; Weight 125.65 kg; bp 18:20 BP 152 / 63; Pulse 45; Resp 16; Pulse Ox 99% ; bp ED Course: 16:26 Patient arrived in ED. bp 16:28 Triage completed. bp 16:28 Arm band placed on. bp 16:29 Patient has correct armband on for positive identification. bp 16:29 Maintain EMS IV. Dressing intact. Good blood return noted. Site clean \T\ dry. Gauge \T\ bp site: 20 RFA. Flushed with 10 mL NS. 16:30 Cali Cordoba NP is PHCP. pm1 16:30 Marek Valencia DO is Attending Physician. pm1 16:31 Mariano Calle, HAYLIE is Primary Nurse. bp 16:56 Initial lab(s) drawn, by tn, sent to lab. EKG done, by ED staff, reviewed by Marek Valencia DO. 17:14 XRAY Chest (1 view) In Process Unspecified. EDMS 17:23 Cali Cordoba NP is PHCP. ms3 01/25 01:16 Marek Valencia DO is Hospitalizing Provider. kl Administered Medications: 01/24 16:56 Drug: Aspirin PO Chewable Tablet 324 mg PO once; 81 mg tablets x 4 Route: PO; bp 17:55 Follow up: Response: No adverse reaction bp 18:18 Drug: Heparin (W[place]-Bolus No thrombolytic) - HEParin IVP 60 units/kg IVP once; Max 5000 bp units {Co-Signature: jb4 (Alonso Guo RN).} Route: IVP; Site: right forearm; 18:20 Follow up: Response: No adverse reaction bp 18:19 Drug: Heparin ([place] Drip) 12 units/kg/hr - ([place] [address] units, D5W IV 500 ml) IV at bp calculated rate Per protocol; Max initial rate 1000 units/hr {Co-Signature: jb4 (Alonso Guo RN).} Route: IV; Rate: calculated rate; Site: left forearm; Medication: 16:29 VIS not applicable for this client. bp Outcome: 18:13 Decision to Hospitalize by Provider. pm1 01/25 01:48 Patient left the ED. jb4 Signatures: Dispatcher [employer] EDMS Julissa Leon, RN RN kl Cali Cordoba, TEJAS [employer]INE ENFORCEMENT OFFICER pm1 Alonso Guo RN RN jb4 Mariano Calle RN RN bp Marek Valencia DO DO ms3 Alonso Guo RN jb4 Corrections: (The following items were deleted from the chart) 01/24 17:53 16:27 BP 125 / 67; Pulse 45bpm; Resp 16bpm; Pulse Ox 99%; Temp 98F; bp bp
--- NOTE | 2024-01-25 18:14 | EDPHYS ---
Physician Documentation [facility] Name: Norbert Louis Age: 68 yrs Sex: Male : 1955 Arrival Date: 01/25/2024 Time: 16:26 Bed 8 Private MD: ED Physician Marek Valencia HPI: 01/24 16:41 This 68 yrs old Black Male presents to ER via EMS with complaints of LOW HEART RATE. ms3 16:41 Norbert Louis is a 68-year-old male presenting to the Emergency Department with ms3 dizziness, primarily when standing, and chest pain located centrally under the ribs. He experienced a fall earlier today at [facility], landing on his right shoulder, resulting in right shoulder pain. He reports the onset of dizziness coinciding with a decreased heart rate, which has been in the 40s. He was recently started on Carvedilol two days ago by the [facility] and took it today, which he believes contributed to the decreased heart rate. There is no report of loss of consciousness during the fall. He receives [facility] care at the [facility].. Historical: - Allergies: 16:28 No Known Allergies; bp - PMHx: 16:28 diabetes mellitus; Hypertensive disorder; bp - Immunization history:: Adult Immunizations up to date. - Infectious Disease History:: Denies. - Social history:: Smoking status: Patient denies any tobacco usage or history of. ROS: 16:41 Constitutional: Negative for fever, and chills. Cardiovascular: Negative for chest ms3 pain, and palpitations. Respiratory: Negative for shortness of breath, cough, wheezing, and pleuritic chest pain, Abdomen/GI: Negative for abdominal pain, nausea, vomiting, diarrhea, and constipation, 16:41 MS/extremity: Positive for pain, of the right shoulder, Exam: 16:41 Constitutional: This is a well developed, well nourished patient who is awake, alert, ms3 and in no acute distress. Chest/axilla: Normal chest wall appearance and motion. Nontender with no deformity. Respiratory: Lungs have equal breath sounds bilaterally, clear to auscultation and percussion. No rales, rhonchi or wheezes noted. No increased work of breathing, no retractions or nasal flaring. Abdomen/GI: Soft, non-tender, with normal bowel sounds. No distension or tympany. No guarding or rebound. No evidence of tenderness throughout. Skin: Warm, dry with normal turgor. Normal color with no rashes, no lesions, and no evidence of cellulitis. MS/ Extremity: Pulses equal, no cyanosis. Neurovascular intact. Full, normal range of motion. 16:41 Cardiovascular: Rate: bradycardic, Rhythm: regular, Pulses: no pulse deficits are appreciated, Heart sounds: normal, normal S1and S2, 16:58 ECG was reviewed by the Attending Physician. ms3 Vital Signs: 16:27 BP 125 / 67; Pulse 45; Resp 16; Temp 98; Pulse Ox 99% ; Weight 125.65 kg; bp 18:20 BP 152 / 63; Pulse 45; Resp 16; Pulse Ox 99% ; bp MDM: 16:30 Medical Screening Exam initiated pm1 16:41 Differential diagnosis: abnormal EKG, acute myocardial infarction, Medication effect. ms3 17:22 Transition of care: After a detail discussion of the patient's case, care is ms3 transferred to Cali Cordoba NP. 17:22 ED course: Discussed EKG with patient and patient states he does not want to be ms3 transferred to [facility] and prefers admission at [facility].. 17:45 Data reviewed: vital signs. Consideration of Admission/Observation Patient will be pm1 admitted to the hospital. 17:45 Care significantly affected by the following chronic conditions: Diabetes, Hypertension.pm1 18:49 Management of patient was discussed with the following: Hospitalist: requested pm1 Cardiology consultation. 18:57 Management of patient was discussed with the following: Joint Yarner: Brandyn KAMARA. NPO at pm1 midnight and will see him tomorrow. 01/24 16:32 Order name: Basic Metabolic Panel; Complete Time: 17:42 ms3 01/24 16:32 Order name: CBC with Diff; Complete Time: 17:26 ms3 01/24 16:32 Order name: Magnesium; Complete Time: 17:42 ms3 01/24 16:32 Order name: NT PRO-BNP; Complete Time: 17:42 ms3 01/24 16:32 Order name: Troponin HS; Complete Time: 17:42 ms3 01/24 20:05 Order name: Urinalysis w/ reflexes EDMS 01/24 20:05 Order name: Lipid Profile EDMS 01/24 20:05 Order name: Lipid Profile EDMS 01/24 20:05 Order name: Troponin High Sensitivity EDMS 01/24 20:05 Order name: Troponin High Sensitivity EDMS 01/24 20:05 Order name: Troponin High Sensitivity EDMS 01/24 20:05 Order name: Troponin High Sensitivity EDMS 01/24 20:05 Order name: Troponin High Sensitivity EDCO 01/24 16:32 Order name: XRAY Chest (1 view); Complete Time: 17:26 ms3 01/24 20:05 Order name: Echo with Doppler EDCO 01/24 16:32 Order name: EKG; Complete Time: 16:33 ms3 01/24 16:32 Order name: Cardiac monitoring; Complete Time: 16:56 ms3 01/24 16:32 Order name: EKG - Nurse/Tech; Complete Time: 16:56 ms3 01/24 16:32 Order name: IV Saline Lock; Complete Time: 16:56 ms3 01/24 16:32 Order name: Labs collected and sent; Complete Time: 16:56 ms3 01/24 16:32 Order name: O2 Per Protocol; Complete Time: 16:56 ms3 01/24 16:32 Order name: O2 Sat Monitoring; Complete Time: 16:56 ms3 EC:58 Rate is 45 beats/min. Rhythm is regular. QRS [place] is Normal. MI interval is normal. T ms3 waves are Inverted in leads I, II, aVF, V4, V5, V6. Clinical impression: Sinus bradycardia. Interpreted by me. Reviewed by me. Administered Medications: 16:56 Drug: Aspirin PO Chewable Tablet 324 mg PO once; 81 mg tablets x 4 Route: PO; bp 17:55 Follow up: Response: No adverse reaction bp 18:18 Drug: Heparin (OR-Bolus No thrombolytic) - HEParin IVP 60 units/kg IVP once; Max 5000 bp units {Co-Signature: jbIrma (Alonso Guo RN).} Route: IVP; Site: right forearm; 18:20 Follow up: Response: No adverse reaction bp 18:19 Drug: Heparin (OR Drip) 12 units/kg/hr - ([place] [address] units, D5W IV 500 ml) IV at bp calculated rate Per protocol; Max initial rate 1000 units/hr {Co-Signature: cinthia (Alonso Guo RN).} Route: IV; Rate: calculated rate; Site: left forearm; Disposition Summary: 01/25/24 18:13 Hospitalization Ordered Notes: Hospitalization Status: Inpatient Admission pm1 Location: Telemetry/MedSurg (Inpatient) pm1 Condition: Stable pm1 Problem: new pm1 Symptoms: have improved pm1 Bed/Room Type: Standard pm1 Provider: Marek Valencia Room Assignment: [id number](01/26/24 01:17) laura Diagnosis - NSTEMI pm1 Forms: - Medication Reconciliation Form pm1 - SBAR form pm1 - Leadership Thank You Letter pm1 Addendum: 01/27/2024 21:35 I was immediately available on-site in the Emergency Department for consultation in the m s3 care of the patient. Signatures: Dispatcher [employer] EDMS Julissa Leon RN RN Cali Kaye NP BUSINESS ANALYST INTERN pm1 Mariano Calle RN RN bp Sims, Marcus, DO DO ms3 Alonso Guo RN [email or web address] Corrections: (The following items were deleted from the chart) 01/24 17:03 16:58 Rate is 45 beats/min. Rhythm is regular. QRS [place] is Normal. MI interval is ms3 normal. Clinical impression: Sinus bradycardia. Interpreted by me. Reviewed by me. ms3 18:14 18:13 Subsequent non-ST elevation (NSTEMI) myocardial infarction pm1 pm1 01/25 01:17 01/24 18:13 pm1
[2024-01-25] MEDS ORDERED: ACETAMINOPHEN 500 MG TAB PO PRN (19:59)
[2024-01-25] MEDS ORDERED: NITROGLYCERIN 0.4 MG/TAB SL PRN (19:59)
--- NOTE | 2024-01-25 19:59 | P.HP ---
Certification for Inpatient Patient admitted to: Inpatient With expected LOS: >2 Midnights Practitioner: I am a practitioner with admitting privileges, knowledge of patient current condition, hospital course, and medical plan of care. Services: Services provided to patient in accordance with Admission requirements found in Title 42 Section 412.3 of the Code of Federal Regulations Patient History Date of Service: 01/25/24 Reason for admission: epigastric pain History of Present Illness: 68-year-old male presented to ER with complaints of epigastric pain noted to have low heart rate. Reports symptoms started this morning while he was making breakfast. He has history of coronary artery disease including 2 MIs in 2021. Denies any previous stent. In the ER he was noted have elevated troponin with EKG changes. [facility] was [facility]. Patient was started on heparin drip and given aspirin. He is currently pain-free. Denies alcohol or tobacco use Allergies No Known Allergies Allergy (Unverified 03/22/23 12:53) Home Medications: Amlodipine [Norvasc*] 10 mg PO DAILY 03/22/23 Atorvastatin Calcium [Lipitor] 80 mg PO BEDTIME 03/22/23 Finasteride [Proscar*] 5 mg PO DAILY 03/22/23 Furosemide [Lasix*] 20 mg PO DAILY 03/22/23 Insulin Glargine,Hum.rec.anlog [Lantus] 50 unit SQ DAILY 03/22/23 Potassium Chloride 10 meq PO DAILY 03/22/23 Tamsulosin [Flomax*] 0.4 mg PO DAILY 03/22/23 levoFLOXacin [Levaquin] 750 mg PO DAILY 7 Days #7 tab 03/24/23 - Past Medical/Surgical History Diabetic: Yes -: CHF -: HTN -: HLD -: DM2 NIDDM -: NM - Social History Alcohol use: No CD- Drugs: No Caffeine use: Yes Review of Systems 10-point ROS is otherwise unremarkable Cardiovascular: Chest Pain Physical Examination - Physical Exam General: Alert, Oriented x3 HEENT: Atraumatic, Normocephalic Respiratory: Clear to auscultation bilaterally, Normal air movement Cardiovascular: Normal S1 S2 Gastrointestinal: Normal bowel sounds, Tenderness Musculoskeletal: No clubbing Integumentary: No rashes, No breakdown - Studies Laboratory Data (last 24 hrs) 01/25/24 01/25/24 16:56 16:56 WBC 3.40 L Hgb 14.8 Hct 45.9 Plt Count 112 L Sodium 142 Potassium 3.8 BUN 24 H Creatinine 1.24 Glucose 131 H Magnesium 2.1 Assessment and Plan - Problems (Diagnosis) (1) NSTEMI (non-ST elevated myocardial infarction) Current Visit: Yes Status: Acute - Plan Non-STEMI Epigastric pain Coronary artery disease bradycardia -- Admit to [facility] with telemetry -- Heparin drip, aspirin -- Hold any beta-tari due to bradycardia -- Started on statin -- Lipid profile, TSH, hemoglobin A1c -- Lipase -- Cardiology contacted in the ER Diabetes mellitus -- Fingerstick blood sugars, sliding scale insulin DVT: Heparin drip - Advance Directives Does patient have a Living Will: No Does patient have a Durable POA for Healthcare: No
[2024-01-25] MEDS ORDERED: HEPARIN/D5W 25,000 UNIT/500 ML BAG IV SCH (21:00)
[2024-01-26 02:49] VITALS: BMI 35.5
[2024-01-26 03:11] LABS: Troponin High Sensitivity 640.6 pg/mL (<58.9)
[2024-01-26 05:11] LABS: PT Prothrombin Time 10.9 SECONDS (9.4-12.5); PTT, Activated Partial Thromb 43.5 SECONDS (24.3-36.9); Protime INR 0.97
[2024-01-26] MEDS: lisinopriL 10 MG TAB PO SCH (09:17)
[2024-01-26] MEDS: ASPIRIN EC 81 MG TAB PO SCH (09:17)
[2024-01-26] MEDS ORDERED: NA CHLORIDE 0.9% 500 ML ONE (10:32)
--- NOTE | 2024-01-26 10:58 | P.CNS ---
Date of Consult: 01/26/24 Chief Complaint: epigastric pain History of Present Illness: Patient with PMH of HTN, HLD, DM presented with epigastric discomfort that has been going on for few days on/off, associated with [facility] BP, no other cardiac symptoms. Allergies No Known Allergies Allergy (Unverified 03/22/23 12:53) Home Medications: Amlodipine [Norvasc*] 10 mg PO DAILY 03/22/23 Atorvastatin Calcium [Lipitor] 80 mg PO BEDTIME 03/22/23 Finasteride [Proscar*] 5 mg PO DAILY 03/22/23 Furosemide [Lasix*] 20 mg PO DAILY 03/22/23 Insulin Glargine,Hum.rec.anlog [Lantus] 50 unit SQ DAILY 03/22/23 Potassium Chloride 10 meq PO DAILY 03/22/23 Tamsulosin [Flomax*] 0.4 mg PO DAILY 03/22/23 levoFLOXacin [Levaquin] 750 mg PO DAILY 7 Days #7 tab 03/24/23 - Past Medical/Surgical History Diabetic: Yes -: CHF -: HTN -: HLD -: DM2 NIDDM -: [place] - Social History Alcohol use: No CD- Drugs: No Caffeine use: No Review of Systems 10-point ROS is otherwise unremarkable Physical Examination Temp Pulse Resp BP Pulse Ox 97.8 F 40 L 22 H 124/65 98 01/26/24 08:00 01/26/24 09:17 01/26/24 08:00 01/26/24 09:17 01/26/24 08:00 General: Alert, In no apparent distress HEENT: Atraumatic, PERRLA, Mucous membr. moist/pink, EOMI, Sclerae nonicteric Neck: Supple, 2+ carotid pulse no bruit, No LAD, Without JVD or thyroid abnormality Respiratory: Clear to auscultation bilaterally, Normal air movement Cardiovascular: Regular rate/rhythm, Normal S1 S2 Gastrointestinal: Normal bowel sounds, No tenderness Musculoskeletal: No tenderness Integumentary: No rashes Neurological: Normal gait, Normal speech, Normal tone, Normal affect Lymphatics: No axilla or inguinal lymphadenopathy Laboratory Data (last 24 hrs) 01/25/24 01/25/24 16:56 16:56 WBC 3.40 L Hgb 14.8 Hct 45.9 Plt Count 112 L Sodium 142 Potassium 3.8 BUN 24 H Creatinine 1.24 Glucose 131 H Magnesium 2.1 - Problems (1) NSTEMI (non-ST elevated myocardial infarction) Current Visit: Yes Status: Acute Plan: NPO for coronary angiogram Heparin drip ACS protocol ASA 81 mg daily Lipitor 40 mg daily get echo
[2024-01-26] MEDS ORDERED: MIDAZOLAM HCL 2 MG/2 ML INJ ONE (11:07)
[2024-01-26] MEDS ORDERED: HEPA 1000U/500MLS 2,000 UNIT/1,000 ML BAG IV ONE (11:07)
[2024-01-26] MEDS ORDERED: LIDOCAINE 1% 20 ML MDV ONE (11:07)
[2024-01-26] MEDS ORDERED: HEPARIN 10,000 UNIT/10 ML VIAL IV ONE (11:07)
[2024-01-26] MEDS ORDERED: CLOPIDOGREL 75 MG TABLET ONE (11:08)
[2024-01-26] MEDS ORDERED: ASPIRIN 325 MG TAB ONE (11:08)
[2024-01-26] MEDS ORDERED: HEPARIN 5000 UNIT/ML 1 ML VIAL ONE (11:08)
[2024-01-26] MEDS ORDERED: TICAGRELOR 90 MG TABLET PO ONE (11:08)
[2024-01-26] MEDS ORDERED: FENTANYL CITR 100 MCG/2 ML ONE (11:08)
[2024-01-26] MEDS ORDERED: ATROPINE SULF 1 MG/10 ML SYR IV ONE (11:08)
[2024-01-26 13:29] VITALS: O2SAT 100
[2024-01-26 14:11] VITALS: BP 117/65; TEMP 97.5
--- NOTE | 2024-01-26 15:34 | P.DS ---
Admission Date: 01/25/24 Discharge Date: 01/26/24 Disposition: ROUTINE DISCHARGE Discharge Condition: GOOD Reason for Admission: epigastric pain Brief History of Present Illness: 68-year-old male presented to ER with complaints of epigastric pain and also noted to have low heart rate. He has history of coronary artery disease including 2 MIs in 2021. He denied any previous stent. In the ER he was noted have elevated troponin with non-specific EKG changes. [facility] Cardiology was contacted in the ED, Patient was started on heparin drip and given aspirin and hospitalized for further management. Hospital Course: Diagnosis Chest pain NSTEMI Bradycardia Essential hypertension Chronic diastolic heart failure Patient hospitalized, troponin elevated but trended flat. Patient seen and evaluated by cardiology Dr. Ahumada who performed cardiac catheterization. No significant coronary artery disease and no PCI done. Patient was observed for a few hours with no issues. He is deemed stable for discharge per cardiology. Patient lipid profile elevated. Low-fat low-cholesterol diet reemphasized. Patient is on Lipitor 80 mg daily which is continued on discharge. Patient has bradycardia with heart rate down to the 30s, however he is asymptomatic. He is informed to follow-up with his [place] doctor of podiatric medicine for further evaluation. Vital Signs/Physical Exam: Temp Pulse Resp BP Pulse Ox 97.5 F 38 L 20 117/65 99 01/26/24 14:10 01/26/24 14:10 01/26/24 14:10 01/26/24 14:10 01/26/24 14:10 General: Alert, In no apparent distress, Oriented x3 HEENT: Mucous membr. moist/pink Neck: Supple, JVD not distended Respiratory: Clear to auscultation bilaterally, Normal air movement Cardiovascular: No edema, Regular rate/rhythm, Normal S1 S2 Gastrointestinal: Normal bowel sounds, Soft and benign, Non-distended, No tenderness Musculoskeletal: No swelling Integumentary: No rashes, No cyanosis Neurological: Normal strength at 5/5 x4 extr Laboratory Data at Discharge: WBC 3.40 thou/uL (4.3-10.9) L 01/25/24 16:56 Hgb 14.8 g/dL (13.6-17.9) 01/25/24 16:56 Hct 45.9 % (39.6-49.0) 01/25/24 16:56 Plt Count 112 thou/uL (152-406) L 01/25/24 16:56 PT 10.9 SECONDS (9.4-12.5) 01/26/24 04:45 INR 0.97 01/26/24 04:45 APTT 74.7 SECONDS (24.3-36.9) H 01/26/24 09:45 Sodium 142 mEq/L (136-145) 01/25/24 16:56 Potassium 3.8 mEq/L (3.5-5.1) 01/25/24 16:56 BUN 24 mg/dL (7-18) H 01/25/24 16:56 Creatinine 1.24 mg/dL (0.70-1.30) 01/25/24 16:56 Glucose 131 mg/dL (74-106) H 01/25/24 16:56 Magnesium 2.1 mg/dL (1.6-2.4) 01/25/24 16:56 Triglycerides 165 mg/dL (<150) H 01/26/24 02:10 Cholesterol 261 mg/dL (<200) H 01/26/24 02:10 HDL Cholesterol 36 mg/dL (40-60) L 01/26/24 02:10 Cholesterol/HDL Ratio 7.25 01/26/24 02:10 Lipase 20 U/L (13-75) 01/26/24 02:10 Home Medications: Amlodipine [Norvasc*] 10 mg PO DAILY 03/22/23 Atorvastatin Calcium [Lipitor] 80 mg PO BEDTIME 03/22/23 Finasteride [Proscar*] 5 mg PO DAILY 03/22/23 Insulin Glargine,Hum.rec.anlog [Lantus] 50 unit SQ DAILY 03/22/23 Potassium Chloride 10 meq PO DAILY 03/22/23 Tamsulosin [Flomax*] 0.4 mg PO DAILY 03/22/23 levoFLOXacin [Levaquin*] 750 mg PO DAILY 7 Days #7 tab 03/24/23 Aspirin [Aspirin EC 81 MG] 81 mg PO DAILY #30 tab 01/26/24 Furosemide [Lasix] 20 mg PO DAILY #37 tab 01/26/24 New Medications: Aspirin [Aspirin EC 81 MG] 81 mg PO DAILY #30 tab Furosemide [Lasix] 20 mg PO DAILY #37 tab Diet: AHA Activity: Ad sharee Followup: Howard Ahumada MD [ACTIVE - CAN ADMIT] - 1-2 Weeks [facility] [Primary Care Provider] - 1-2 Weeks Time spent managing pt's care (in minutes): 28
[2024-01-26] MEDS ORDERED: ATORVASTATIN 80 MG TAB PO SCH (21:00)
--- NOTE | 2024-01-26 22:13 | OP ---
Date of Procedure: 01/26/2024 Surgeon: Howard Ahumada Procedures Performed: 1.Left heart catheterization. 2.Selective coronary angiogram. Indication For Procedure: [id number] VT. Complications: None. Estimated Blood Loss: Less than 50 cc. Access: Right radial, closed by TR band. Sedation Time: 20 minutes with 2 of Versed and 50 of fentanyl. Description Of Procedure: After risks, benefits, and alternatives were explained to the patient, the patient agreed to proceed with the procedure and signed informed consent. The patient was brought b k to the garden labourer, prepped and draped in sterile fashion. Time-out was performed. Sedation was ad ministered. Next, right radial access was obtained using ultrasound-guided micropuncture technique. Brandon 4 catheter was advanced over the J-wire to the LV cavity. LVEDP was obtained. Pullback did no t show any gradient. Same catheter was used for selective angiogram of the left and right coronary s ystems. At the end of procedure, catheter was removed over a J-wire. Sheath was removed. TR band w as applied. Hemostasis achieved. The patient was moved back to recovery in stable condition. Findings: 1.Left main: Normal. 2.LAD: Diffuse mild luminal irregularities with distal 20% to 30% disease. 3.Left circumflex: Mild luminal irregularities. 4.RCA: Large, dominant, mild luminal irregularities. 5.LVEDP: 21 mmHg. Assessment And Plan: 1.Normal coronaries. 2.Mild elevated filling pressure. Plan will be to continue medical management for heart failure. KRISSY/BENITA Voice ID: [id number] Report ID: [id number]
--- NOTE | 2024-01-27 15:50 | EKG ---
Test Date: 2024-01-25 Test Time: 16:51:22 Manufacturing Intern: BP MEASUREMENT RESULTS: Intervals: Rate: 45 WI: 226 QRSD: 132 QT: 480 QTc: 415 [place]: P: 66 WI: 226 QRS: 73 T: 193 INTERPRETIVE STATEMENTS: Sinus bradycardia with 1st degree AV block Nonspecific intraventricular block T wave abnormality, consider inferolateral ischemia Abnormal ECG Compared to ECG 03/22/2023 10:17:41 First degree AV block now present T-wave abnormality now present Left bundle-branch block no longer present ST (T wave) deviation no longer present Possible ischemia still present Electronically Signed On 01-27-24 15:47:36 DEVELOPER DESIGNER by Howard Ahumada
--- NOTE | 2024-01-31 14:48 | ECHO ---
HEIGHT: 6 ft 2 in WEIGHT: 277 lb 0 oz DATE OF STUDY: 01/26/[address]: Neelam Worrell MD 2-DIMENSIONAL: YES M.MODE: YES DOPPLER: YES COLOR FLOW: YES TDS: YES PORTABLE: YES DEFINITY: NO BUBBLE STUDY: NO DIAGNOSIS: NSTEMI CARDIAC HISTORY: CATHERIZATION:YES SURGERY: NO PROSTHETIC VALVE: NO PACEMAKER: NO MEASUREMENTS (cm) DIASTOLIC (NORMALS) SYSTOLIC (NORMALS) IVSd 1.5 (0.6-1.2) LA Diam 2.9 (1.9-4.0) LVEF 65% LVIDd 5.1 (3.5-5.7) LVIDs 3.1 (2.0-3.5) %FS 38% LVPWd 1.5 (0.6-1.2) Ao Diam 2.9 (2.0-3.7) 2 DIMENSIONAL ASSESSMENT: RIGHT ATRIUM: NORMAL LEFT ATRIUM: NORMAL RIGHT VENTRICLE: NORMAL LEFT VENTRICLE: NORMAL TRICUSPID VALVE: NORMAL MITRAL VALVE: NORMAL PULMONIC VALVE: NORMAL AORTIC VALVE: NORMAL PERICARDIAL EFFUSION: NONE AORTIC ROOT: NORMAL LEFT VENTRICULAR WALL MOTION: NORMAL. DOPPLER/COLOR FLOW: GRADE II DIASTOLIC DYSFUNCTION. COMMENTS: 1. NORMAL LEFT VENTRICULAR SYSTOLIC FUNCTION. LEFT VENTRICULAR EJECTION FRACTION 65%. NORMAL WALL MOTION. 2. GRADE II DIASTOLIC DYSFUNCTION. TECHNOLOGIST: ANOOP DUMONT
== END 2024-01-26 15:31 | disposition home or self-care (01) | DRG 281 ==
LOC: ER 16:26 → ERHOLD 19:59 → 4TH 01-26 01:26
PROVIDERS: ADMIT Internal Medicine; ATTEND Internal Medicine
PROC: 4A023N7 Measurement of Cardiac Sampling and Pressure, Left Heart, Percutaneous Approach (ICD-10-PCS; principal; 2024-01-26)
PROC: B2111ZZ Fluoroscopy of Multiple Coronary Arteries using Low Osmolar Contrast (ICD-10-PCS; 2024-01-26)
DX: I21.4 Non-ST elevation (NSTEMI) myocardial infarction (principal); I50.32 Chronic diastolic (congestive) heart failure; I11.0 Hypertensive heart disease with heart failure; E78.5 Hyperlipidemia, unspecified; E11.9 Type 2 diabetes mellitus without complications; R00.1 Bradycardia, unspecified; I25.2 Old myocardial infarction; Z79.4 Long term (current) use of insulin; Z79.02 Long term (current) use of antithrombotics/antiplatelets; Z79.899 Other long term (current) drug therapy
CPT/HCPCS: 36415; 71045; 76937; 80048; 80061; 82947; 83036; 83690; 83735; 83880; 84443; 84484; 85025; 85610; 85730; 93005; 93306; 93454; 93458; 99152; 99153; 99285; C1893; J0461; J1644; J2003; J2250; J3010; J7040; Q9966